=== PATIENT | male | born 1970 | race Caucasian/White ===

== ENCOUNTER 2022-03-22 14:47 | Emergency (ER) | payer OTHER ==
[~2022-03-22] VITALS: Ht 185.4 cm; Wt 88.5 kg
--- NOTE | 2022-03-22 15:00 | NUR ---
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 PLACED ON BED, AAOX4, BREATHING EVEN AND UNLABORED SATURATING AT 97%RA
[2022-03-22] MEDS ORDERED: ONDANSETRON HCL/PF 4 MG/2 ML VIAL ONE (15:19)
--- NOTE | 2022-03-22 15:20 | NUR ---
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
[2022-03-22] MEDS ORDERED: ONDANSETRON HCL/PF 4 MG/2 ML VIAL IVP ONE (15:30)
[2022-03-22] MEDS ORDERED: IV NS 0.9% 1,000 ML BAG IV ONE ×2 (15:30→17:00)
[2022-03-22 15:42] LABS: BASOPHILS % (AUTO) 0.2 % (0.0-2.0); HEMATOCRIT 36 % (39-51); HEMOGLOBIN 11.8 g/dL (13.5-17.5); LYMPHOCYTES # (AUTO) 0.3 K/uL (0.8-4.8); LYMPHOCYTES % (AUTO) 3.1 % (20.0-44.0); MEAN CORPUSCULAR HGB CONC 33 g/dl (31.0-36.0); MEAN CORPUSCULAR VOLUME 106 fL (80-96); MONOCYTES # (AUTO) 0.5 K/uL (0.1-1.30); MONOCYTES % (AUTO) 4.6 % (2.0-12.0); NEUTROPHILS # (AUTO) 10.1 K/uL (1.8-8.9); NEUTROPHILS % (AUTO) 92.1 % (43.0-81.0); PLATELET COUNT (AUTO) 67 K/uL (150-450); RED BLOOD CELL COUNT(AUTO) 3.34 MIL/uL (4.5-6.0)
[2022-03-22 15:58] LABS: ALANINE AMINOTRANSFERASE 138 U/L (12-78); ALBUMIN 3.3 g/dL (3.4-5.0); ALKALINE PHOSPHATASE 90 U/L (46-116); ASPARTATE AMINOTRANSFERASE 613 U/L (15-37); BILIRUBIN,DIRECT 2.4 mg/dL (0.0-0.2); BILIRUBIN,TOTAL 3.3 mg/dL (0.2-1.0); CALCIUM, SERUM 7.8 mg/dL (8.5-10.1); CARBON DIOXIDE 12 mmol/L (21-32); CHLORIDE 94 mmol/L (98-107); GLUCOSE 80 mg/dL (74-106); LIPASE 163 U/L (73-393); POTASSIUM 3.5 mmol/L (3.5-5.1); SODIUM SERUM 144 mmol/L (136-145); TOTAL PROTEIN, SERUM 7.1 g/dL (6.4-8.2); UREA NITROGEN, BLOOD 26 mg/dL (7-18)
[2022-03-22 16:39] LABS: CREATININE 2.8 mg/dL (0.6-1.3)
--- NOTE | 2022-03-22 17:54 | NUR ---
urine sample sent to lab
[2022-03-22 18:22] LABS: BILIRUBIN,URINE MODERATE (NEGATIVE); COLOR,URINE DARK YELLOW (YELLOW); LEUKOCYTE ESTERASE ,URINE TRACE (NEGATIVE); NITRITE, URINE POSITIVE (NEGATIVE); PH,URINE 5.5 (5.0-8.0); PROTEIN,URINE 100 mg/dl (NEGATIVE); UGLUCOSE NEGATIVE (NEGATIVE); UROBILINOGEN,URINE >=8.0 EU/dL (0.2)
[2022-03-22 18:41] LABS: BAND % (MANUAL) 9 % (0.0-5.0); LYMPHOCYTES % (MANUAL) 5 % (16-48); MONOCYTES % (MANUAL) 2 % (0-11.0); NEUTROPHILS % (MANUAL) 84 (42-76)
[2022-03-22 18:45] LABS: RBC,URINE 81-100 /HPF (0-2)
[2022-03-22 18:47] LABS: BACTERIA,URINE 3+ /HPF (None Seen); WBC,URINE 21-50 /HPF (0-3)
[2022-03-22 18:48] LABS: COARSE GRANULAR CASTS,URINE Few /LPF (None Seen); HYALINE CASTS, URINE Few /LPF (None Seen); MUCUS,URINE Few /LPF (None Seen)
--- NOTE | 2022-03-22 18:51 | NUR ---
covid swabbed done. sent to lab.
[2022-03-22] MEDS ORDERED: IV D5/0.45 NACL 1,000 ML IV ONE (19:00)
[2022-03-22] MEDS ORDERED: FOLIC ACID 1 MG TABLET PO ONE (19:00)
[2022-03-22] MEDS ORDERED: CEFTRIAXONE 1GM BAG (ER ONLY) 1 GM/50 ML PIGGYBACK IV ONE (19:00)
[2022-03-22] MEDS ORDERED: Thiamine 100 MG in IV D5W 50 ML IV SCH (19:00)
[2022-03-22 19:07] LABS: CALCIUM, SERUM 6.8 mg/dL (8.5-10.1); CREATININE 2.1 mg/dL (0.6-1.3); POTASSIUM 3.6 mmol/L (3.5-5.1)
[2022-03-22 19:21] LABS: ALBUMIN 2.8 g/dL (3.4-5.0); BILIRUBIN,TOTAL 3.1 mg/dL (0.2-1.0); TOTAL PROTEIN, SERUM 5.9 g/dL (6.4-8.2)
[2022-03-22] MEDS ORDERED: Thiamine 100 MG/ML VIAL ONE (19:36)
--- NOTE | 2022-03-22 19:40 | NUR ---
LACTIC ACID: 15.1
[2022-03-22] MEDS ORDERED: METHOCARBAMOL (500MG) 500 MG TABLET ONE (19:43)
[2022-03-22 20:12] LABS: MAGNESIUM 1.3 mg/dL (1.8-2.4); PHOSPHORUS 6.1 mg/dL (2.5-4.9)
[2022-03-22] MEDS ORDERED: Magnesium 1GM/D5W 100ML PREMIX 200 ML IV ONE (20:49)
[2022-03-22] MEDS: Magnesium 1GM/D5W 100ML PREMIX 100 ML IV SCH ×2 (21:00→22:19)
[2022-03-22] MEDS ORDERED: MORPHINE SULFATE INJ 4 MG/ML DISP.SYRIN ONE (21:30)
[2022-03-22] MEDS ORDERED: MORPHINE SULFATE INJ 10 MG/ML DISP.SYRIN IV ONE (21:30)
--- NOTE | 2022-03-22 21:41 | NUR ---
CALL FROM [facility] TRANSFER [place]. PT ACCEPTED TO [facility] BY DR GROVER. ROOM [phone]. # FOR REPORT [phone]
--- NOTE | 2022-03-22 22:28 | NUR ---
LACTIC ACID 5.7
[2022-03-22 22:51] LABS: ACETAMINOPHEN 0 ug/ml (10-30); ALCOHOL, BLOOD 53 mg/dL (0-0)
--- NOTE | 2022-03-22 23:33 | NUR ---
[facility] SET UP FOR 0800 [facility]IA [facility].
--- NOTE | 2022-03-23 04:09 | NUR ---
PT IS RESTING IN BED, CONTINUES TO BE MONITORED.
[2022-03-23] MEDS ORDERED: MORPHINE SULFATE INJ 4 MG/ML DISP.SYRIN ONE (04:20)
[2022-03-23] MEDS ORDERED: CHLORDIAZEPOXIDE HCL 25 MG CAPSULE ONE (04:20)
[2022-03-23] MEDS ORDERED: CHLORDIAZEPOXIDE HCL 25 MG CAPSULE PO ONE (04:30)
[2022-03-23] MEDS ORDERED: MORPHINE SULFATE INJ 2 MG/ML DISP.SYRIN IV ONE (04:30)
--- NOTE | 2022-03-23 06:15 | NUR ---
REPORT GIVEN TO JOSE SERRANO AT [facility]
[2022-03-23 09:00] VITALS: BP 142/72
--- NOTE | 2022-03-23 09:05 | NUR ---
PICKED UP BY TRANSPORT IN STABLE CONDITION
== END 2022-03-23 09:41 | disposition short-term general hospital (02) ==
LOC: ER 14:52
DX: E87.20 Acidosis, unspecified (principal); E86.0 Dehydration; N17.9 Acute kidney failure, unspecified; N30.90 Cystitis, unspecified without hematuria; R17 Unspecified jaundice; R79.89 Other specified abnormal findings of blood chemistry; Z20.822 Contact with and (suspected) exposure to COVID-19; R00.0 Tachycardia, unspecified; Z90.49 Acquired absence of other specified parts of digestive tract
CPT/HCPCS: 99291; 96365; 96361; 96366; 96367; 96375; 93005 ×2; 85025; 80048; 87077; 82550; 87086; 83605 ×2; 83690; 80076; 83735; 84100; 85007; 87186; 81001; 36415; 80053; 84484 ×2; 87081; 82553; 87426; 80143; 80320; 80307; 96376; J2270 ×3; J2405; J3490; J7060; J3411; J3475; J0696; C9803; G0480